=== PATIENT | male | born 1965 | race Caucasian/White ===

== ENCOUNTER 2022-01-22 21:25 | Emergency (ER) | payer OTHER, SELFPAY ==
--- NOTE | ~2022-01-22 | CT_ITS ---
EXAMINATION: CT brain wo con DATE: 01/22/2022 22:19 INDICATION: Altered mental status. TECHNIQUE: Computed tomography (CT) of the head was performed without intravenous contrast. Sagittal and coronal reconstructions were performed. The mA was adjusted according to patient size. Iterative reconstruction technique was employed. The dose-length product was 681.00 mGy-cm. COMPARISON: None FINDINGS: No acute intracranial hemorrhage, acute infarction or abnormal extra axial fluid collection. There is mild scattered white matter hypoattenuation consistent with chronic small vessel ischemic disease. S ymmetric prominence of the sulci consistent with mild age-appropriate diffuse cerebral volume loss. V entricles are normal and symmetric. No mass/mass effect. Osteoma near the right frontoethmoidal reces s. Paranasal sinuses are otherwise unremarkable. The orbits are normal. Small bilateral mastoid effus ions. IMPRESSION: 1. No acute intracranial process. 2. Age-related changes including mild diffuse volume loss and mild scattered white matter hypoattenua tion consistent with chronic small vessel ischemic disease. Reviewed, dictated and finalized at location A. IMPRESSION: 1. No acute intracranial process. 2. Age-related changes including mild diffuse volume loss and mild scattered wh ite matter hypoattenuation consistent with chronic small vessel ischemic diseas e.
[2022-01-22 21:32] VITALS: BP 137/92; PULSE 66; RESP 18; TEMP 36.4; O2SAT 98
--- NOTE | 2022-01-22 21:58 | ED.GENADULT ---
HPI - General Adult General Chief complaint: Unspecified <VENICE Barber Last Filed: 01/23/22 02:06> Stated complaint: AMS <VENICE Barber Last Filed: 01/23/22 02:06> Time Seen by Provider: 01/22/22 21:35 <VENICE Barber Last Filed: 01/23/22 02:06> Source: patient and family <VENICE Barber Last Filed: 01/23/22 02:06> Mode of arrival: EMS <VENICE Barber Last Filed: 01/23/22 02:06> Limitations: altered mental status and dementia <VENICE Barber Last Filed: 01/23/22 02:06> History of Present Illness HPI narrative: Patient is a 56 y/o male who presents to the ED via EMS with c/o AMS. Per EMS report, patient has a history of dementia and was found [place] the side of the highway sleeping in his truck with the truck not running. He appeared to be confused and was brought here for further evaluation. Per patient's via phone, patient lives in [place]. He was recently admitted to a hospital there for cirrhosis. He underwent paracentesis once. He was supposed to receive this every week, but has not needed it the last 2 weeks since being placed on diuretic therapy, spironolactone and furosemide. reports patient was asleep in a recliner this morning when she left for work. She came home at lunch and patient was gone. She tried calling him several times throughout the day but was never able to get ahold of him. Assumed he was just running errands. When she returned home from work tonight he was still not there and she became concerned. She then received a phone call from police here. Patient states he left home around 10 AM today to visit a [employer] about 30 minutes away from home. He then went to [facility] and walked around for about an hour. He states he got back on the highway to go home after leaving [facility] and knew he needed to get gas. He states he tried to find a gas station near his house, but does not know how he ended up here. <Ana Rosen PA-C - Last Filed: 01/23/22 02:06> Review of Systems Review of Systems: CONSTITUTIONAL: Denies fever, chills, or sweats. EYES: Denies visual changes. CARDIOVASCULAR: Denies chest pain, palpitations, or edema. RESPIRATORY: Denies cough or dyspnea. GASTROINTESTINAL: Denies abdominal pain, nausea, vomiting, or diarrhea. MUSCULOSKELETAL: Denies back pain, joint pain, or myalgia. NEUROLOGIC: Denies headache, numbness, or weakness. <Ana Rosen PA-C - Last Filed: 01/23/22 02:06> All systems reviewed & are unremarkable except as noted in HPI and below <Ana Rosen PA-C - Last Filed: 01/23/22 02:06> PMFSH Past Medical History Medical History: Medical History (Updated 01/23/22 @ 01:59 by Ana Rosen PA-C) Chronic back pain Cirrhosis COPD (chronic obstructive pulmonary disease) GERD (gastroesophageal reflux disease) HLD (hyperlipidemia) HTN (hypertension) Neuropathy <Ana Rosen PA-C - Last Filed: 01/23/22 02:06> Surgical History Surgical History: Surgical History (Updated 01/23/22 @ 01:59 by Ana Rosen PA-C) History of back surgery S/P insertion of spinal cord stimulator <Ana Rosen PA-C - Last Filed: 01/23/22 02:06> Social History Social History: Social History (Updated 01/23/22 @ 00:17 by Ana Rosen PA-C) Smoking status: Current every day smoker Alcohol intake: former <Ana Rosen PA-C - Last Filed: 01/23/22 02:06> Exam Narrative: GENERAL: Well appearing, well-nourished, non-toxic, in no acute distress. HEAD: Normocephalic, atraumatic. EYES: PERRL/EOMI, conjunctivae clear bilaterally. No nystagmus. NOSE: Normal, no drainage. NECK: Supple. No adenopathy, no masses. RESPIRATORY: Airway patent, respirations nonlabored. Clear to auscultation bilaterally, no rales, rhonchi, wheezing. CARDIOVASCULAR: Regular rate and rhythm without
--- NOTE | 2022-01-22 22:02 | ECG_ITS ---
Measurements Intervals [place] Rate: 70 P: 63 RI: 191 QRS: 19 QRSD: 86 T: 59 QT: 411 QTc: 444 Interpretive Statements SINUS RHYTHM VENTRICULAR PREMATURE COMPLEX DELAYED PRECORDIAL R/S TRANSITION LOW QRS VOLTAGE- DIFFUSE LEADS BASELINE ARTIFACT- I, II, III, AVR, AVL, AVF, V1 BORDERLINE ECG NO PREVIOUS ECG AVAILABLE FOR COMPARISON Electronically Signed On 01-23-2022 7:02:41 CDT by Rodney Mills D.O.
[2022-01-22 22:50] LABS: Basophils Absolute Auto 0.1 K/mm3 (0.0-0.1); Basophils Percent Auto 0.9 % (0.2-1.2); Eosinophils Percent Auto 0.1 % (0-4.4); Hematocrit 33.5 % (42.0-52.0); Hemoglobin 11.5 g/dL (14.0-18.0); Immature Granulocyte Absolute 0.02 K/mm3 (0.00-0.031); Immature Granulocyte Percent A 0.3 % (0-0.5); Lymphocytes Absolute Auto 1.87 K/mm3 (0.9-3.2); Lymphocytes Percent Auto 27.4 % (18.3-44.2); Mean Corpuscular HGB Conc 34.3 g/dl (32-36); Mean Corpuscular Hemoglobin 29.3 pg (26-34); Mean Corpuscular Volume 85.5 fl (80-100); Mean Platelet Volume 10.4 fl (7.4-10.4); Monocytes Absolute Auto 0.8 K/mm3 (0.1-0.6); Monocytes Percent Auto 11.7 % (2.6-8.5); Neutrophils Absolute Auto 4.1 K/mm3 (1.3-6.7); Neutrophils Percent Auto 59.6 % (45.5-73.1); Platelet Count Result 241 k/mm3 (150-375); Red Blood Count 3.92 M/mm3 (4.6-6.20); Red Cell Distribution Width 15.6 % (11.5-14.5); White Blood Count 6.8 K/mm3 (4.5-10.0)
[2022-01-22 23:00] LABS: INR 1.2; Partial Thromboplastin Time 33.6 SECONDS (22.3-36.8); Prothrombin Time 14.4 Seconds (11.1-14.7)
[2022-01-22 23:01] LABS: Alanine Aminotransferase 28 U/L (6-50); Albumin Level 3.5 g/dL (3.5-5.1); Alkaline Phosphatase 102 U/L (38-126); Anion Gap 7 mmol/L (8-16); Aspartate Amino Transferase 58 U/L (17-59); Bilirubin,Total 1.1 mg/dL (0.2-1.3); Blood Urea Nitrogen 8 mg/dL (9-20); Calcium 9.6 mg/dL (8.4-10.2); Carbon Dioxide 26 mmol/L (22-30); Chloride 97 mmol/L (98-107); Estimated CRCL calculation 143 ml/min; Estimated Glomerular Filt Rate > 60; Glucose 100 mg/dL (65-110); Potassium 4.3 mmol/L (3.4-5.0); Sodium 130 mmol/L (137-145)
[2022-01-22 23:04] LABS: Ammonia 14 umol/L (9-30)
[2022-01-22 23:12] LABS: Troponin I < 0.012 ng/mL (0.000-0.034)
[2022-01-22 23:40] VITALS: RESP 18
[2022-01-22 23:42] VITALS: BP 147/105; PULSE 57; RESP 18; O2SAT 100
[2022-01-22 23:44] LABS: Appearance Urine Clear (Clear); Bilirubin Urine 1+ (Negative); Blood Urine Negative (Negative); Color Urine Yellow (Yellow); Glucose Urine UA Negative (Negative); Ketones Urine Trace mg/dL (Negative); Leukocyte Esterase Ur Negative LEU/UL (Negative); Nitrate Urine Negative (Negative); Protein Urine 1+ mg/dL (Negative)
[2022-01-22 23:51] LABS: Add Urine Microscopic? YES; Amorphous Sediment Urine Few; Bacteria Urine Trace /hpf; Mucus Urine Few /lpf; RBC Urine 0-2 /hpf (0-2)
[2022-01-22 23:59] LABS: Amphetamine Screen Urine Negative (Negative); Barbiturate Screen Urine Negative (Negative); Benzodiazepines Screen Urine Negative (Negative); Cannabinoid Screen Urine Positive (Negative); Cocaine Screen Urine Negative (Negative); Methadone Screen Urine Negative (Negative); Opiate Screen Urine Negative (Negative); Phencyclidine Screen Urine Negative (Negative)
[2022-01-23 00:40] LABS: Ethanol < 10 mg/dL (<10)
[2022-01-23 01:35] VITALS: BP 158/102; PULSE 76; RESP 20; O2SAT 99
== END 2022-01-23 02:23 | disposition home or self-care (01) ==
PROVIDERS: Physician Assistant; Emergency Provider Emergency Medicine
DX: R41.82 Altered mental status, unspecified (principal); F03.90 Unspecified dementia, unspecified severity, without behavioral disturbance, psychotic disturbance, mood disturbance, and anxiety; K74.60 Unspecified cirrhosis of liver; J44.9 Chronic obstructive pulmonary disease, unspecified; E78.5 Hyperlipidemia, unspecified; I10 Essential (primary) hypertension; K21.9 Gastro-esophageal reflux disease without esophagitis; G62.9 Polyneuropathy, unspecified; Z96.82 Presence of neurostimulator; Z87.891 Personal history of nicotine dependence; I49.3 Ventricular premature depolarization
CPT/HCPCS: 36415; 70450; 80053; 80307; 81001; 82140; 84484; 85025; 85610; 85730; 93005; 99284